=== PATIENT | female | born 1965 | race Caucasian/White ===

== ENCOUNTER → 2016-12-20 | Outpatient (CLI) | payer OTHER ==
[~2016-12-20] MED LIST: CERTAGEN PO; CLARITIN10 MG PO; FOLIC ACID PO; LASIX PO; LORTAB 7.5-5001 TAB PO; LOTREL 5/20 MG1 CAP PO; MICRO-K PO; PREVACID PO; VIT B-12 PO; VIT B6; VIT C; ZAROXYLYN PO
--- NOTE | ~2016-12-20 | MR113 ---
[facility] A Service of [facility] RADIOLOGY TEXT RESULTS PATIENT: RINKU TINEO LOCATION: [facility] : 61 UNIT #: [id number] AGE: [address]: Everette Styles MD SEX: F ORDER DR: [id number] [address] [id number] MR#: [id number] Acc #: [id number] NAME: RINKU TINEO : 1965 SEX: F STUDY DATE/TIME: 12/20/2016 11:37 UNIT: [facility] ROOM: STUDY DESCRIPTION: MR Lumbar Wo Contrast Attending Physician: Everette Styles M.D. Referring Physician: Everette Styles M.D. Ordering Physician: Everette Styles M.D. Primary Care Physician: Heriberto Norman Jr., M.D. MRI CENTER REPORT This report is preliminary unless electronic signature is present. EXAM Lumbar spine MRI HISTORY Low back pain radiating toward the left for the past 8-9 years with progressive worsening of symptoms. TECHNIQUE Multiplanar imaging of the lumbar spine was performed. COMPARISON 10/26/2014 FINDINGS For purposes of numbering on this report to match the previous report, the lowermost somewhat small disc will be defined as S1-S2. L1-2 and L2-3 are normal. At L3-4, there is mild disc space narrowing, mild disc desiccation and concentric disc bulging with moderate facet disease. Central stenosis is mild and foraminal narrowing is not present to a significant degree. At _L 4-5 the disc is degenerated. There is broad-based posterior disc bulging and moderate bilateral facet hypertrophy with fluid in the facets. Foraminal narrowing is moderate on the left and mild on the right. Degenerative changes at this level have progressed since the previous scan. At _L5-S1 , there is central disc herniation with moderately severe central stenosis. Facet hypertrophy is mild. Foraminal narrowing is mild. The central disc herniation shows marked progression since the [facility] A Service of [facility] RADIOLOGY TEXT RESULTS PATIENT: RINKU TINEO LOCATION: [facility] : 61 UNIT #: [id number] AGE: [address]: Everette Styles MD SEX: F ORDER DR: previous scan. The S1-S2 disc is normal. The conus is normal. There is no evidence of marrow edema or paraspinous mass. IMPRESSION 1. 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 2. Progression of degenerative disc disease at L4-5 with a degenerative grade 1 spondylolisthesis and broad-based posterior disc bulging with osteophyte that extends into the foramina bilaterally worse on the left than on the right. This is a potential source for left-sided radicular symptoms. 3. Mild central stenosis from disc and facet disease at L3-4. This has not progressed significantly since the previous exam. Dictated by... Alec Baltazar M.D. THIS IS AN ELECTRONICALLY VERIFIED REPORT Alec Baltazar M.D. at 12/20/2016 4:28 PM Shweta TD: 12/20/2016 14:30 JOB #: [id number] MRI CENTER REPORT Page 1 of 1
== END | disposition home or self-care (01) ==
LOC: SMRI 07:21
DX: M43.16 Spondylolisthesis, lumbar region (principal); M48.06 Spinal stenosis, lumbar region; M51.26 Other intervertebral disc displacement, lumbar region; M51.36 Other intervertebral disc degeneration, lumbar region
CPT/HCPCS: 72148